=== PATIENT | male | born 1965 | race Caucasian/White ===

== ENCOUNTER → 2020-12-14 | Day surgery (SDC) | payer OTHER ==
[~2020-12-14] VITALS: Ht 182.9 cm; Wt 93.0 kg
[~2020-12-14] MED LIST: COZAAR50 MG PO; LIPITOR 10MG TA10 MG PO; LOPRESSOR50 MG PO; NORCO 5-325 TA1 EACH PO; SYNTHROID100 MCG PO
[2020-12-14 07:37] LABS: HCT 43.2 % (42.0-52.0); HGB 14.4 g/dl (13.2-18.0); MCH 30.2 pg (25.0-31.0); MCHC 33.3 g/dL (32.0-36.0); MCV 90.6 fL (78.0-100.0); MPV 11.1 fL (6.0-9.5); RBC 4.77 M/uL (4.70-6.00); RDW 13.6 % (11.5-14.0); WBC 12.2 K/uL (4.0-10.5)
[2020-12-14 07:51] LABS: BUN/CREAT RATIO (CALC) 27.4 RATIO; CREATININE 0.73 mg/dL (0.67-1.17)
== END | disposition home or self-care (01) ==
LOC: EDBD 06:13 → FAS 06:13
PROVIDERS: Anesthesiology
DX: S83.221A Peripheral tear of medial meniscus, current injury, right knee, initial encounter (principal); M17.11 Unilateral primary osteoarthritis, right knee; E03.9 Hypothyroidism, unspecified; I25.2 Old myocardial infarction; F17.210 Nicotine dependence, cigarettes, uncomplicated; Z88.0 Allergy status to penicillin; Z91.030 Bee allergy status; Z95.5 Presence of coronary angioplasty implant and graft
CPT/HCPCS: 36415; 80048; 93005; J1100; J1885; J2250; J2274; J2370; J2704; J3010; J7120